=== PATIENT | female | born 1940 | race Caucasian/White ===

== ENCOUNTER 2020-06-25 14:19 | Emergency (ER) | payer MEDICARE, OTHER ==
[~2020-06-25 14:19] MED LIST: LASIX40 MG PO
[2020-06-25 16:50] LABS: HCT 42.1 % (37.0-47.0); LYMPHOCYTE 17.5 % (15-48); MCH 28.5 pg (25.0-31.0); MCHC 33.3 g/dL (32.0-36.0); MCV 85.6 fL (78.0-100.0); MONOCYTE 9.9 % (0-12); MPV 10.6 fL (6.0-9.5); NEUTROPHIL 70.4 % (41-80); NRBC 0; PLT 168 K/uL (150-400); RBC 4.92 M/uL (4.20-5.40); RDW 12.4 % (11.5-14.0)
[2020-06-25 17:09] LABS: ALBUMIN 3.6 g/dL (3.4-5.0); BILIRUBIN - TOTAL 0.5 mg/dL (0.2-1.0); BUN/CREAT RATIO (CALC) 15.3 RATIO; CREATININE 0.72 mg/dL (0.51-0.95); GLOBULIN (CALCULATION) 3.6 g/dL; TOTAL PROTEIN 7.2 g/dL (6.4-8.2)
[2020-06-25 17:13] LABS: POTASSIUM 2.9 mmol/L (3.5-5.1)
[2020-06-25 17:17] LABS: PRO-BNP 239 pg/mL (<450)
[2020-06-25 17:20] LABS: CORONAVIRUS 2019 SARS-COV-2 NEGATIVE (NEGATIVE)
[2020-06-25 17:21] LABS: INFLUENZA A NAA NEGATIVE (NEGATIVE)
== END 2020-06-25 18:00 | disposition home or self-care (01) ==
LOC: FER 14:19
PROVIDERS: Nurse Practitioner Family
DX: E87.6 Hypokalemia (principal); R06.02 Shortness of breath; I50.9 Heart failure, unspecified; Z95.5 Presence of coronary angioplasty implant and graft; Z79.82 Long term (current) use of aspirin; Z79.899 Other long term (current) drug therapy; Z20.822 Contact with and (suspected) exposure to COVID-19
CPT/HCPCS: 36415; 71045; 80053; 83880; 84484; 85025; 93005; U0002

== ENCOUNTER 2020-12-14 14:43 | Emergency (ER) | payer MEDICARE, OTHER ==
[2020-12-14 15:18] LABS: BASOPHIL 1.1 % (0-2); EOSINOPHIL 2.7 % (0-7); HCT 39.2 % (37.0-47.0); HGB 13.2 g/dl (12.5-16.0); LYMPHOCYTE 31.6 % (15-48); MCH 28.6 pg (25.0-31.0); MCHC 33.7 g/dL (32.0-36.0); MONOCYTE 8.8 % (0-12); MPV 10.4 fL (6.0-9.5); NEUTROPHIL 55.6 % (41-80); NRBC 0; PLT 183 K/uL (150-400); RBC 4.61 M/uL (4.20-5.40); RDW 12.6 % (11.5-14.0); WBC 5.5 K/uL (4.0-10.5)
[2020-12-14 15:24] LABS: INR 1.07 (0.9-1.2); PROTHROMBIN TIME 13.3 SECONDS (11.8-13.4)
[2020-12-14 15:25] LABS: PTT 30.7 SECONDS (24.4-34.7)
[2020-12-14 15:37] LABS: ALBUMIN 3.4 g/dL (3.4-5.0); BILIRUBIN - TOTAL 0.3 mg/dL (0.2-1.0); BUN/CREAT RATIO (CALC) 17.6 RATIO; CREATININE 0.85 mg/dL (0.51-0.95); GLOBULIN (CALCULATION) 2.9 g/dL; POTASSIUM 3.6 mmol/L (3.5-5.1); TOTAL PROTEIN 6.3 g/dL (6.4-8.2)
[2021-02-11] MEDS ORDERED: ASPIRIN EC81 MG PO (14:36)
[2021-02-11] MEDS ORDERED: HCTZ12.5 MG PO (14:37)
[2021-02-11] MEDS ORDERED: COREG 3.125M3.125 MG PO (14:37)
[2021-02-11] MEDS ORDERED: ISOSORBIDE MONO30 MG PO (14:40)
[2021-02-11] MEDS ORDERED: CRESTOR40 MG PO (14:41)
[2021-02-11] MEDS ORDERED: VIT B 12 PO (14:42)
[2021-02-11] MEDS ORDERED: DRISDOL50000 UNIT PO (14:42)
[2021-02-11] MEDS ORDERED: NITROQUIK SL0.4 MG SL (14:43)
== END 2020-12-14 18:45 | disposition home or self-care (01) ==
LOC: FER 14:43
PROVIDERS: Emergency Medicine
DX: R07.89 Other chest pain (principal); E11.9 Type 2 diabetes mellitus without complications; I10 Essential (primary) hypertension
CPT/HCPCS: 36415; 71045; 80053; 84484; 85025; 85610; 85730; 93005

== ENCOUNTER → 2021-03-05 | Day surgery (SDC) | payer MEDICARE, OTHER ==
[~2021-03-05] VITALS: Ht 170.2 cm; Wt 99.8 kg
[~2021-03-05] MED LIST changes: +ASPIRIN EC81 MG PO; +COREG 3.125M3.125 MG PO; +CRESTOR40 MG PO; +DRISDOL50000 UNIT PO; +HCTZ12.5 MG PO; +ISOSORBIDE MONO30 MG PO; +NITROQUIK SL0.4 MG SL; +NORCO 5-325 TA1 EACH PO; +VIT B 12 PO
[2021-03-05 08:32] LABS: BUN/CREAT RATIO (CALC) 21.3 RATIO; CREATININE 0.61 mg/dL (0.51-0.95); POTASSIUM 3.2 mmol/L (3.5-5.1)
== END | disposition home or self-care (01) ==
LOC: FAS 02-19 09:15
PROVIDERS: Anesthesiology
DX: D05.12 Intraductal carcinoma in situ of left breast (principal); Z79.82 Long term (current) use of aspirin; Z79.899 Other long term (current) drug therapy
CPT/HCPCS: 36415; 80048; J1100; J1885; J2250; J2405; J2704; J3010; J7120

== ENCOUNTER 2021-03-13 13:10 | Emergency (ER) | payer MEDICARE, OTHER ==
[2021-03-13 15:32] LABS: BASOPHIL 0.5 % (0-2); EOSINOPHIL 4.3 % (0-7); HCT 43.8 % (37.0-47.0); LYMPHOCYTE 33.1 % (15-48); MCH 27.9 pg (25.0-31.0); MCV 87.3 fL (78.0-100.0); MONOCYTE 10.1 % (0-12); MPV 10.1 fL (6.0-9.5); NEUTROPHIL 51.6 % (41-80); NRBC 0; PLT 199 K/uL (150-400); RBC 5.02 M/uL (4.20-5.40); RDW 12.4 % (11.5-14.0); WBC 5.5 K/uL (4.0-10.5)
[2021-03-13 15:49] LABS: BUN/CREAT RATIO (CALC) 15.4 RATIO; CREATININE 0.78 mg/dL (0.51-0.95); POTASSIUM 3.3 mmol/L (3.5-5.1)
[2021-03-13] MEDS ORDERED: CEPHALEXIN500 MG PO (17:54)
[2021-03-13] MEDS ORDERED: PEPCID AC20 MG PO (17:54)
== END 2021-03-13 18:26 | disposition home or self-care (01) ==
LOC: FER 13:10
PROVIDERS: Nurse Practitioner Family
DX: T78.40XA Allergy, unspecified, initial encounter (principal); N61.0 Mastitis without abscess; I10 Essential (primary) hypertension
CPT/HCPCS: 36415; 76642-LT; 80048; 85025; J1200; J2930; J7030

== ENCOUNTER → 2021-04-02 | Day surgery (SDC) | payer MEDICARE, OTHER ==
[~2021-04-02] VITALS: Ht 170.2 cm; Wt 99.8 kg
[~2021-04-02] MED LIST changes: +CEPHALEXIN500 MG PO; +PEPCID AC20 MG PO
[2021-04-02 08:30] LABS: BUN/CREAT RATIO (CALC) 24.6 RATIO; CREATININE 0.65 mg/dL (0.51-0.95); POTASSIUM 3.6 mmol/L (3.5-5.1)
== END | disposition home or self-care (01) ==
LOC: FAS 06:39
PROVIDERS: Anesthesiology
DX: C50.912 Malignant neoplasm of unspecified site of left female breast (principal); R21 Rash and other nonspecific skin eruption; I25.10 Atherosclerotic heart disease of native coronary artery without angina pectoris; Z17.0 Estrogen receptor positive status [ER+]; Z79.82 Long term (current) use of aspirin; Z79.899 Other long term (current) drug therapy; Z91.040 Latex allergy status; Z86.16 Personal history of COVID-19; Z95.5 Presence of coronary angioplasty implant and graft
CPT/HCPCS: 36415; 78195; 80048; A9541; J2405; J2704; J3010; J7120